=== PATIENT | male | born 1950 | race Caucasian/White ===

== ENCOUNTER 2021-07-17 14:54 | Emergency (ER) | payer MEDICARE, MEDICAID ==
[~2021-07-17] VITALS: Ht 170.1 cm; Wt 100.2 kg
[~2021-07-17 14:54] MED LIST: DICLOFENAC POTA50 MG PO; HYDROCODONE BIT1 T11 PO; PANTOPRAZOLE SO40 MG PO; TAMSULOSIN HYD0.4 MG PO; ZITHROMAX250 MG PO
[2021-07-17] MEDS ORDERED: WARFARIN SOD5 MG PO (16:13)
[2021-07-17] MEDS ORDERED: VIBRA-TAB100 MG PO (16:52)
== END 2021-07-17 17:26 | disposition home or self-care (01) ==
LOC: ED 14:54
DX: S91.111A Laceration without foreign body of right great toe without damage to nail, initial encounter (principal); Z79.899 Other long term (current) drug therapy; W45.8XXA Other foreign body or object entering through skin, initial encounter; Y93.89 Activity, other specified; Y92.89 Other specified places as the place of occurrence of the external cause; Y99.8 Other external cause status